=== PATIENT | female | born 1990 ===

== ENCOUNTER → 2023-02-01 | Outpatient (CLI) | payer OTHER ==
[2023-02-01 15:03] LABS: Candida species (DNA Probe) Negative (NEGATIVE); G. vaginalis (DNA Probe) Negative (NEGATIVE); T. vaginalis (DNA Probe) Negative (NEGATIVE)
== END ==
LOC: LAB SHORT 10:57 → LAB 10:57
PROVIDERS: Advanced Practice Midwife
DX: N76.0 Acute vaginitis (principal)
CPT/HCPCS: 87480; 87510; 87660